=== PATIENT | male | born 1980 | race Two or more races ===

== ENCOUNTER 2025-03-14 09:49 | Outpatient (AMB) | payer MEDICAID, SELFPAY ==
[2025-03-14 10:08] VITALS: BP 160/100; PULSE 79; RESP 18; TEMP 36.5; O2SAT 98; BMI 28.6
--- NOTE | 2025-03-14 10:08 | GSCOFFNT_ITS ---
Vital Signs - [facility] 03/14/25 10:08 Height 1.7 m Height Method Stated Weight 83.036 kg Weight Measurement Method Standing Scale BMI 28.6 BP 160/100 H Blood Pressure Source Automatic Cuff Blood Pressure Location Right Upper Arm Position Sitting Respiration 18 Pulse 79 Pulse Source Monitor Temp 97.7 F Temp Source Temporal Artery Scan Pulse Oximetry (%) 98 Oxygen Delivery Method Room Air Med/Allergies Allergies & Medications Allergies lactose Adverse Reaction (Mild, Verified 03/14/25 10:14) Diarrhea Medication Reconciliation No Known Home Medications 03/22/21 [History Confirmed 03/14/25] AK Intake Visit Data Collection New Patient or Established: New Patient not seen in past 3 years at [facility] (cons idered New) Reason for Visit:: COLONOSCOPY REFERRAL Pain Present Currently: No Pain scale:: 0 Pain Scale Used: Major-Leblanc/Numerical PCP or OBGYN visit in last 3 months: Yes Hx Now: No Do You Feel Safe at Home: Yes Authorities Contacted: N/A Smoking Status Smoking Status: Never smoker Immunization / Flu Flu Vaccine in the Last 12 Months: No Flu Vaccine Exclusion Criteria: No Exclusion Criteria Past Medical History Past Medical History NEUROLOGIC: Negative Neurological Disorders or Seizures CARDIAC: Positive Hypertension (HX. NO MEDS); Negative Cardiac Disorders or Congestive Heart Failure RESPIRATORY: Negative Chronic Obstructive Pulmonary Disease (COPD) GASTROINTESTINAL: Positive Gastrointestinal Disorders (DIARRHEA) and Hemorrhoids (IN THE PAST); Negative Hepatitis GENITOURINARY: Negative Genitourinary Disorders or Renal Disease MUSCULOSKELETAL: Negative Carpal Tunnel Syndrome ENDOCRINE: Negative Endocrine Disorders, Diabetes Mellitus Type 1 or Diabetes Mellitus Type 2 HEMATOLOGIC: Negative Blood Disorders OTHER HISTORY: Positive Chicken Pox; Negative Falls, Blood Transfusions, Blood Transfusion Reaction, Anesthesia Reactions, Organ Transplant, MRSA or Cancer Family History FAMILY HISTORY: Positive Family Cancer (FATHER- PROSTATE); Negative Family Surgery or Family Anesthesia Reaction Surgical History SURGICAL: Negative Organ Transplant Social History SMOKING STATUS: Smoking status: Never smoker ALCOHOL: Alcohol Intake: Current HOUSING: Housing: House Travel Risk Travel Hx Recent Travel: No HPI HPI Narrative HISTORY OF PRESENT ILLNESS IB[place]ley, have obtained verbal consent from the patient, to be recorded during this encounter which may include, but not limited to, medical history, examination, treatment plans, and relevant health information.? Patient was informed that recording will be read and reviewed by myself before inclusion in the medical chart. The patient is a 44-year-old male who presents for a colonoscopy. 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 He has a history of undergoing a colonoscopy in [address] Larsen which noted excellent prep and was normal. Dr Larsen's note indicates that the pt's father had been diagnosed with colon CA the year prior, however today pt is unsure whether his father had prostate or colon CA. Pt himself reports feeling very well with no abdominal pain, no changes in bowel habits, no pencil thin or bloody stools. He has no concerns regarding his weight or his appetite. He sought a referral for colonoscopy because he had learned that the new recommended age of screening is 45 PMH: HTN, HLD PSHx: Perineal abscess drained in the remote past Meds: No antiplt or anticoagulation Allergies: NKDA Family hx: father with either prostate or colon CA at age 70 ROS Review of Systems Systems Reviewed: All systems reviewed, normal except as documented Objective/Exam General General Appearance: alert, cooperative and well groomed Resp Respiratory exam: Absent respiratory distress Assessment & Plan Diagnosis / Problem List (1) Encounter for screening colonoscopy: Status: Acute Assessment & Plan: 44M otherwise healthy with normal colonoscopy in 2020 and no changes in bowel habits. I explained that if his father did have colon CA I would schedule colonoscopy as he should undergo the procedure at least every 5 years, but if his father had prostate CA he does not need another scope until 2030 unless symptoms develop. Pt will confer with his family and get back to us. 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 NO MEDS) Respiratory Problems Chronic Obstructive Pulmonary Disease (COPD): No Stomache/Intestinal Problems Hepatitis: No Hemorrhoids: Yes (IN THE PAST) Genital/Urinary Problems Renal Disease: No Musculoskeletal Problems Carpal Tunnel Syndrome: No Endocrine Problems Diabetes Mellitus Type 1: No Diabetes Mellitus Type 2: No Other Problems Falls: No Blood Transfusions: No Blood Transfusion Reaction: No Anesthesia Reactions: No Organ Transplant: No MRSA: No Chicken Pox: Yes Cancer: No
== END 2025-03-14 10:27 | disposition home or self-care (01) ==
PROVIDERS: PCP Family Medicine; Referring Provider Family Medicine; Supervising Provider Surgery; Visit Provider Surgery
DX: Z12.11 Encounter for screening for malignant neoplasm of colon (principal)
CPT/HCPCS: 99203; G0463